=== PATIENT | female | born 1980 | race Caucasian/White ===

== ENCOUNTER 2024-02-27 09:36 | Outpatient (CLI) | payer OTHER, SELFPAY | END 2024-02-27 09:37 | disposition home or self-care (01) | PROVIDERS: Visit Provider Physician Assistant Medical | DX: Z01.419 Encounter for gynecological examination (general) (routine) without abnormal findings (principal); R10.32 Left lower quadrant pain; Z13.6 Encounter for screening for cardiovascular disorders; Z13.29 Encounter for screening for other suspected endocrine disorder | CPT/HCPCS: 80053; 80061; 84443 ==

== ENCOUNTER 2024-03-05 09:01 | Outpatient (CLI) | payer OTHER, SELFPAY ==
--- NOTE | 2024-03-05 09:00 | CRLHL7_ITS ---
For Patients: As a result of the Century Cures Act, medical imaging exams and procedure reports are released immediately into your electronic medical record. You may view this report before your referring provider. If you have questions, please contact your health care provider. INDICATION: Left lower quadrant abdominal pain. TECHNIQUE: CT abdomen and pelvis without contrast. COMPARISON: None. FINDINGS: Lower chest: Tiny 3 mm right lower lobe nodule series 3, image 15 is of doubtful significance. Liver: Normal in size and attenuation. No suspicious masses. Gallbladder and bile ducts: No stones or inflammation. No biliary dilatation. Pancreas: Unremarkable. No mass or inflammation. Spleen: Normal in size. No masses. Adrenal glands: Normal in size. No nodules. Kidneys: Normal in size. No suspicious masses, stones, or hydronephrosis. GI tract: Unremarkable. Normal in caliber. No sign of mass or inflammation. Normal appendix. Vasculature: Abdominal aorta is normal in caliber. Lymph nodes: No lymphadenopathy. Peritoneum/Abdominal Wall: Small to moderate size umbilical hernia containing intra-abdominal fat and fluid or nonspecific soft tissue. Superior to the umbilicus to the left of midline is a 2nd moderate-size hernia containing fat and contents from the ligamentum teres seen for example on series 2, image 53. No intra-abdominal fluid or free air. Pelvis: Unremarkable. No pelvic masses. Bones: Unremarkable for age. IMPRESSION: There is an umbilical hernia and adjacent supraumbilical hernia, both containing fat and intra-abdominal soft tissue or fluid contents. Remainder of the exam is unremarkable. No other finding to explain left-sided pain. Please note that all CT scans at this facility use dose modulation, iterative reconstruction, and/or weight-based dosing when appropriate to reduce radiation dose to as low as reasonably achievable. Dictated by Jay Copeland MD @ 03/05/2024 2:08:21 PM (Electronically Signed)
== END 2024-03-05 09:02 | disposition home or self-care (01) ==
PROVIDERS: PCP Physician Assistant Medical; Visit Provider Physician Assistant Medical
DX: R10.32 Left lower quadrant pain (principal); K42.9 Umbilical hernia without obstruction or gangrene
CPT/HCPCS: 74176